=== PATIENT | male | born 1985 | race Caucasian/White ===

== ENCOUNTER 2021-12-07 21:57 | Inpatient (IN) ==
[2021-12-07] MEDS ORDERED: MULTI-VITAMIN INFUSION 10 ML, THIAMINE HCL 100 MG, FOLIC ACID 1 MG in SODIUM CHLORIDE 0... IV ONE (22:12)
[2021-12-07] MEDS ORDERED: LORazepam 2 MG/1 ML VIAL IV STA (22:12)
[2021-12-07] MEDS ORDERED: chlordiazePOXIDE HCl 25 MG CAP PO ONE (22:12)
--- NOTE | 2021-12-07 22:18 | Emergency Department Note ---
Impression & Plan Alcohol withdrawal, Alcohol abuse, Methamphetamine abuse, Elevated liver enzymes ED Provider Note NAME: MAYELA ENCISO AGE: 36 SEX: M : 1985 ARRIVES VIA: Ambulance INFORMANT: [Patient] ED PROVIDER(S): [Jonny Hernadez MD] CHIEF COMPLAINT: Detox request HISTORY OF PRESENT ILLNESS: The patient is a 36-year-old male with a history of alcohol abuse and methamphetamine abuse. He last used methamphetamine about 3 days ago. He last drank alcohol this morning. He drinks a case of beer daily. The patient was in our ED earlier today and had laboratory work drawn. When he was called to report to his room, he had left. Attempts were made to locate him but all attempts were unsuccessful. He returns now by ambulance asking for help, he states that he wants to rid himself of his addictions. Patient admits to some nausea and vomiting if he does not drink alcohol. He has in the past gone into seizures from alcohol withdrawal. He was at [facility] about a month ago for several days for detox. The patient complains of some left-sided abdominal and flank pain. This has been ongoing for some time. He complains of some difficulty urinating at times as well. There has been no fever, no cough or congestion. No diarrhea. REVIEW OF SYSTEMS: See HPI for pertinent positives and negatives. A total of ten systems were reviewed and were otherwise negative. PMHx/PSHx: See Below SOCIAL HISTORY: See Below. PHYSICAL EXAM: GENERAL: Patient is in no acute distress. Alcohol on his breath. HEENT: No acute trauma, normocephalic atraumatic, mucous membranes moist, no nasal congestion, no scleral icterus. NECK: No stridor, no adenopathy, no meningismus, trachea is midline. LUNGS: Clear to auscultation bilaterally, no wheeze, no rhonchi, breath sounds equal. HEART: Without murmurs gallops or rubs, regular rate and rhythm. ABDOMEN: Soft, somewhat tender in the left upper quadrant, bowel sounds positive, no hernias, no peritonitis. EXTREMITIES: No cyanosis or edema, full range of motion of all the joints without pain or difficulty, no signs for acute trauma. NEUROLOGIC: Oriented x 3, no acute motor or sensory deficits, no focal weakness. SKIN: No rash, no jaundice, no diaphoresis. Back: Mild left flank discomfort to percussion. Groin: No obvious hernias. DIFFERENTIAL DIAGNOSIS: Alcohol abuse, drug abuse, alcohol withdrawal, renal or liver failure, electrolyte imbalance, dehydration, hydronephrosis, gastritis, pancreatitis, UTI, renal colic, renal hematoma, pneumonia, among others. EMERGENCY DEPARTMENT COURSE/PROCEDURES: ECG: Indication was withdrawal. The ECG shows a normal sinus rhythm with a rate of 99. There is no ST elevation, no PVCs. The QTc is 454. Continuous Cardiac Monitoring: An order was placed for continuous cardiac monitoring. The monitor shows a rate of 107 with sinus tachycardia. Critical Care Note: I have personally spent 37 minutes of critical care time in the direct management of this patient. This includes bedside care, interpretation of diagnostic studies, and testing, discussion with consultants, patient, and family members, and other required patient management activities. This 37 minutes is in excess of all separately billable procedures. MEDICAL DECISION MAKING: I was able to review the laboratory work from his earlier visit and use this in conjunction with some testing from the second visit. There was no leukocytosis or concerning anemia. Platelet count was mildly high at 403. No renal failure or significant electrolyte abnormality. Liver enzymes were elevated. Patient appeared to be in a euthyroid state. Lipase was slightly high but not really high enough to diagnose pancreatitis. ECG showed a normal sinus rhythm, no ST elevation. Cardiac enzyme testing x1 was not consistent with acute cardiac injury. Urinalysis did not show infection. Aspirin and Tylenol levels were undetectable. Urine tox showed amphetamines. Alcohol level was initially elevated in the 300s with his first visit, it was 251 at the second visit. Covid testing returned negative. Chest x-ray did not show free air, pneumonia or mediastinal widening. Abdominal and pelvis CT showed no acute surgical pathology, no urinary obstruction or bowel obstruction. The patient presents with complaints of alcohol withdrawal. He had been here in this ED earlier but had left before he was placed in a room. He returned by ambulance for care. The patient received IV Ativan, oral Librium. He was given IV saline mixed with multivitamins, thiamine and folate. He does seem to be resting fairly comfortably. The patient is in need of a hospital stay. He is beginning to withdrawal from alcohol. He has in the past had alcohol withdrawal seizures. He requires a hospital stay, stabilization and eventually rehab placement. I did speak to the patient about his findings, I talked to case management. The on-call hospitalist was consulted. Past Med/Surg History Medical History Alcohol abuse Drug abuse Surgical History (Updated 12/08/21 @ 00:28 by Naima Montoya DO) No significant past surgical history Family History (Updated 12/08/21 @ 00:28 by Naima Montoya DO) Other Family history non-contributory Social History Smoking Status: Current every day smoker Preferred Language: Sami Feels Safe at Home: Yes Allergies Allergies Allergy/AdvReac Type Severity Reaction Status Date / Time No Known Allergies Allergy Verified 12/07/21 22:52 Home Meds Home Medications Medication Instructions Recorded Confirmed No Known Home Medications 12/07/21 12/07/21 Results & Data (ED) Vital Signs Vital Signs - 24 hr 12/07/21 22:09 Temperature 36.3 C L Temperature Source Oral Pulse Rate 90 Pulse Rhythm Regular Pulse Strength Normal Respiratory Rate 18 Respiratory Effort / Characteristics Non-Labored Respiratory Depth Normal Respiratory Pattern Regular Blood Pressure 164/97 H Blood Pressure Mean 119 Blood Pressure Position Lying Pulse Oximetry 97 Oxygen Delivery Method Room Air Sepsis Recent Fever Within 48 Hours No Sepsis New/Unexplained Change in Mental Status No Sepsis Action Taken by Nursing No Action Required Home Medications Current Medication List: was personally reviewed by me Laboratory Data Attestation: I reviewed the patient's lab results. Lab Results 12/07/21 12/07/21 12/07/21 Range/Units 22:40 22:40 22:40 Troponin I < 0.03 (0-0.04) ng/ml Lipase 102 H (11-82) U/L Ethyl Alcohol mg/dL 251.7 H (<10.0) mg/dl SARS-CoV-2, RNA, NAAT NEGATIVE (NEGATIVE) Administered Medications Discontinued Medications Chlordiazepoxide HCl (Chlordiazepoxide Hcl 25 Mg Cap) 50 mg PO NOW ONE Stop: 12/07/21 22:13 Last Admin: 12/07/21 23:23 Dose: 50 mg Documented by: [id number] Multivitamins 10 ml/ Thiamine HCl 100 mg/ Folic Acid 1 mg/Sodium Chloride 1,011.2 mls @ 1,011.2 mls/hr IV .Q1H ONE Stop: 12/07/21 23:11 Last Admin: 12/07/21 23:24 Dose: 1,011.2 mls/hr Documented by: [id number] Ioversol (Optiray 320 100ml) 100 ml IV ONCE ONE Stop: 12/07/21 23:14 Last Admin: 12/07/21 23:13 Dose: 93 ml Documented by: [id number] Lorazepam (Lorazepam 2 Mg/1 Ml Vial) 1 mg IV NOW STA Stop: 12/07/21 22:13 Last Admin: 12/07/21 23:24 Dose: 1 mg Documented by: [id number] Imaging Data Attestation: I personally reviewed and interpreted this imaging study as follows: My Impression: Chest x-ray: There is no free air, mediastinal widening or pneumothorax. I see no pneumonia. Radiologist's Impression: CT ABDOMEN & PELVIS With Contrast: No acute findings in the abdomen or pelvis. No radiodense gallstones or gallbladder distention. Unremarkable appendix. Bilateral extrarenal pelves. No hydronephrosis. Hepatic steatosis with focal fatty infiltration also visualized along the falciform ligament. Radiologist: Nhi Stewart M.D. Discharge Plan Visit Data Chief Complaint: Detox Request Stated Complaint: PAIN/ALCOHOL WITHDRAWL ED Provider: Jonny Hernadez Discharge Problem: Alcohol withdrawal, Alcohol abuse, Methamphetamine abuse, Elevated liver enzymes Patient Disposition: Admitted As Inpatient Condition: Fair Forms Stand Alone Forms: My [facility], Suicide Prevention Resources Prescriptions Prescriptions: No Action No Known Home Medications RF: 0 Referrals Referrals: PCP,NO [Primary Care Provider] -
[2021-12-07] MEDS ORDERED: OPTIRAY 320 100ml IV ONE (23:13)
[2021-12-07 23:15] LABS: Lipase 102 U/L (11-82)
[2021-12-07 23:16] LABS: Troponin I < 0.03 ng/ml (0-0.04)
[2021-12-08] MEDS ORDERED: chlordiazePOXIDE ALCOHOL WITHDRAWL 50MG PO STA (00:19)
[2021-12-08] MEDS ORDERED: GABAPENTIN 1200MG ALCOHOL WITHDRAWAL LOAD PO STA (00:19)
--- NOTE | 2021-12-08 00:38 | History & Physical Report ---
Date of Service December 08, 2021 Assessment & Plan (1) Alcohol abuse: Plan: 36yo male with history of EtOH abuse presenting with withdrawal symptoms, requesting detox. Patient has had history of withdrawal with seizures in the past. He drinks at least 30 beers/day. Last drink 12/07/21 AM prior to arrival to ER. Presently without withdrawal symptoms. He was administered a banana bag as well as Librium 50mg po and Ativan 1mg IV in the ER. -Admit to PCU -Seizure precautions -Continue Librium per protocol -Ativan as needed by AWSS scoring -Thiamine and B12 supplementation -Patient reports numbness and burning sensation on soles of feet bilaterally - ?EtOH neuropathy, B12 - check level (2) Drug abuse: Plan: Patient with history of methamphetamine use as well as IV heroine. -Consider rehab discussion after acute issues resolve -Check HCV and HIV with history of IVDU - patient is not sure if this has been checked in past. Plan: F/E/N - LR at 125mL/hr x 2 liters, check Mg and replete as needed, NPO for now Ppx - low risk for DVT Code - Full Dispo - Admit to PCU History of Present Illness Chief Complaint: EtOH withdrawal Primary Care Provider: NO PCP Riki Pereira is a 36yo male with history of EtOH abuse, heroine and methamphetamine use presenting with EtOH withdrawal and request for detoxification. Patient reports drinking EtOH regularly since childhood. He was incarcerated for 4 years and was released in 2019 after which he began drinking more heavily. He reports drinking at least 30 12oz beers per day with occasional liquor in addition. His last drink was this morning prior to arrival. He does use methamphetamine as well - last 3 days ago. He has used IV heroine in the past but reports has not done this for some time. Patient somnolent during my encounter after receiving Librium and Ativan. Overall he has no complaints. Denies fever, chills, chest pain or palpitations. He has tried to quit drinking in the past and was sober for 21 days. He identifies as an alcoholic; has tried AA/meetings in the past but didn't think they were helpful. He has been hospitalized for acute EtOH withdrawal in the past with seizures - details of when and where are unclear. Patient was seen in the ER earlier today - labs were drawn prior to him being placed in a room. He left after blood being drawn then returned. He then returned to the ER in an ambulance. Afebrile, mildly tachycardic at 104, NAD ER Course: Banana bag, Gabapentin, Librium Allergies Allergy/AdvReac Type Severity Reaction Status Date / Time No Known Allergies Allergy Verified 12/07/21 22:52 Home Medications Medication Instructions Recorded Confirmed Type No Known Home Medications 12/07/21 12/07/21 History Past Med/Surg History Medical History (Updated 12/08/21 @ 00:27 by Naima Montoya DO) Alcohol abuse Drug abuse Surgical History (Updated 12/08/21 @ 00:28 by Naima Montoya DO) No significant past surgical history Family History (Updated 12/08/21 @ 00:28 by Naima Montoya DO) Other Family history non-contributory Social History Smoking Status: Current every day smoker Preferred Language: Spanish Feels Safe at Home: Yes Review of Systems Review of Systems: All systems reviewed & are unremarkable except as noted in HPI & below Physical Exam Physical Exam: General: patient somnolent, arousable, answers questions and follows commands then falls back asleep. NAD, no tremor Skin: warm, dry, intact, no rashes or lesions HEENT: NC/AT, PERRL, EOMI, anicteric sclera, conjunctiva without injection, external ear normal to inspection and nontender, nares patent, dry mucus membranes, dentition intact, no oropharyngeal lesions, neck supple, trachea midline, no LAD, no thyromegaly, no JVD Heart: +S1/S2, regular, no m/r/g Lungs: equal air entry bilaterally, no rales/rhonchi/wheezes Abd: +BS, soft, NT/ND, no masses/organomegaly/ascites Ext: warm, 2+ pulses in UE/LE bilaterally, no clubbing/cyanosis or edema Neuro: nonfocal, patient AA&O x 4, speech intact, no facial droop, moving all extremities on command with equal strength 5/5 Results & Data Results & Data ([facility]) Vital Signs (Past 12 Hours) Vital Signs Temp Pulse Resp BP Pulse Ox 12/07/21 22:09 36.3 C L 90 18 164/97 H 97 Laboratory Results Laboratory Results Troponin I < 0.03 ng/ml (0-0.04) 12/07/21 22:40 Lipase 102 U/L (11-82) H 12/07/21 22:40 Ethyl Alcohol mg/dL 251.7 mg/dl (<10.0) H 12/07/21 22:40 SARS-CoV-2, RNA, NAAT NEGATIVE (NEGATIVE) 12/07/21 22:[address] Abdomen and Pelvis with contrast - No acute findings in the abdomen or pelvis. No radiodense gallstones or gallbladder distentino. Unremarkable appendix. Bilateral extrarenal pelves. No hydronephrosis. Hepatic steatosis with focal fatty infiltration also visualized along the falciform ligament. Code Status & VTE Plan VTE Prophylaxis Plan VTE Prophylaxis will be ordered: No PG Care Time/CCT Total # of Minutes Spent Total Time Spent with Patient: Total time spent is greater than 50% in coordination of care (as documented) at patient's floor/unit and/or counseling patient: Coding Level of Care Code 90724 Initial Inpt Care Lvl 2 Diagnoses Alcohol abuse F10.10 Drug abuse F19.10
[2021-12-08] MEDS ORDERED: ONDANSETRON INJ 2 MG/ML 2 ML VIAL IV PRN (01:15)
[2021-12-08] MEDS ORDERED: ATIVAN IV ALCOHOL WITHDRAWL IV PRN (01:15)
[2021-12-08] MEDS ORDERED: LORazepam 2 MG/1 ML VIAL IV PRN ×3 (01:15)
[2021-12-08] MEDS ORDERED: chlordiazePOXIDE HCl 25 MG CAP PO SCH (01:15)
[2021-12-08] MEDS: LACTATED RINGER'S 1,000 ML IV SCH ×2 (01:34→09:59)
[2021-12-08] MEDS: CHLORDIAZEPOXIDE 50MG STARTING DOSE PO SCH ×3 (05:46→18:20)
[2021-12-08 06:17] LABS: Hematocrit (blood only) 38.3 % (42-52); Hemoglobin 13.2 g/dL (14.0-18.0); Mean Corpuscular Hemoglobin 33.8 pg (25-34); Mean Corpuscular Hgb Conc 34.5 g/dL (32-36); Mean Platelet Volume 9.3 fL (7.4-10.4); Platelet Count 272 K/uL (130-400); RDW Coefficient of Variation 13.3 % (11.5-14.5); RDW Standard Deviation 47.5 fL (36.4-46.3); Red Blood Count 3.91 M/uL (4.7-6.1); White Blood Count 4.13 K/uL (4.8-10.8)
[2021-12-08 06:40] LABS: Alanine Aminotransferase 285 U/L (7-52); Albumin Globulin Ratio 1.3 (0.9-2); Albumin Level 3.5 gm/dl (3.4-5.0); Alkaline Phosphatase 135 U/L (34-104); Anion Gap 8 (3-11); Aspartate Aminotransferase 122 U/L (13-39); BUN Creatinine Ratio 21.2 (10-20); Bilirubin Direct 0.5 mg/dl (0-0.2); Bilirubin,Total 1.6 mg/dl (0.2-1.0); Blood Urea Nitrogen 7 mg/dl (6-23); Calcium 8.5 mg/dl (8.5-10.1); Carbon Dioxide 24 mmol/L (21-32); Chloride 105 mmol/L (98-107); Creatinine Clr Calc Pharmacy 342.9 ml/min; Est GFR (African American) > 150.0 ml/min; Est GFR (Non-African American) > 150.0 ml/min; Globulin 2.6 gm/dl (2.5-4.0); Glucose 93 mg/dl (70-99(Fasting)); Potassium 3.4 mmol/L (3.5-5.1); Sodium 137 mmol/L (136-145); Total Protein 6.1 gm/dl (6.0-8.3)
[2021-12-08 06:50] LABS: ALC (manual) 2.32 K/uL (1.2-3.4); ANC (manual) 1.31 K/uL (1.4-6.5); Basophils # (manual) 0.04 K/uL (0-0.2); Basophils % (manual) 0.9 %; Eosinophils # (manual) 0.25 K/uL (0-0.5); Eosinophils % (manual) 6.1 %; Lymphocytes # (manual) 1.48 K/uL (1.2-3.4); Lymphocytes % (manual) 35.9 %; Monocytes # (manual) 0.22 K/uL (0.11-0.59); Monocytes % (manual) 5.3 %; Neutrophils # (manual) 1.31 K/uL (1.4-6.5); Neutrophils % (manual) 31.6 %; Reactive Lymphocytes # (manual) 0.83 K/uL; Reactive Lymphocytes % (manual) 20.2 %
--- NOTE | 2021-12-08 07:18 | XRay Report ---
XR chest 1V portable CLINICAL HISTORY: left side pain. COMPARISON STUDY: No previous studies for comparison. TECHNIQUE: 1 view of the chest FINDINGS: Single frontal view of the chest demonstrates the cardiomediastinal silhouette to be within normal li mits. The lungs are clear of alveolar opacities. There is no evidence for pleural effusion. There is no evidence for vascular congestion. There is no acute osseous pathology. IMPRESSION: 1. No acute cardiopulmonary disease. ACT 112: Negative or not required by law. Electronically signed by: Keith Seaman M.D. 12/08/2021 7:16 AM
--- NOTE | 2021-12-08 07:31 | CT Scan Report ---
CT OF THE ABDOMEN AND PELVIS WITH CONTRAST CLINICAL HISTORY: Left-sided abdominal pain and vomiting. COMPARISON STUDY: None. TECHNIQUE: Following IV administration of 93 mL of Optiray, axial images of the abdomen and pelvis we re obtained from the lung bases to the proximal femurs. Images were reviewed in the axial, sagittal, and coronal planes. IV contrast was administered without complication. Automated exposure control wa s utilized for the study. A dose lowering technique was utilized adhering to the principles of ALARA . CT DOSE: 321.93 mGy.cm FINDINGS: No pneumatosis, free air or portal venous gas is present. There is suspected hepatic steato sis. In addition, there is focal fat along the falciform ligament. No hepatic lesions are present. Th ere is no biliary or pancreatic ductal dilatation. Spleen, adrenal glands, kidneys and pancreas are u nremarkable. There is no hydronephrosis. There is no evidence for a bowel obstruction. The appendix i s normal. Underdistention of the colon is noted. Equivocal bladder wall thickening is present. Major vasculature is patent. There is no lymphadenopathy or ascites. No acute fracture or suspicious lesion is identified within the visualized skeletal structures. IMPRESSION: 1. No acute process within the abdomen or pelvis. 2. Probable hepatic steatosis. 3. No bowel obstruction. No bowel wall thickening. Normal appendix. ACT 112: Negative or not required by law. Electronically signed by: Jan Toribio M.D. 12/08/2021 7:30 AM
[2021-12-08] MEDS ORDERED: THIAMINE HCL 100 MG TAB PO SCH (09:00)
[2021-12-08] MEDS: FOLIC ACID 1 MG TAB PO SCH (09:56)
[2021-12-08] MEDS: POTASSIUM CHLORIDE CRTAB 20 MEQ TABCR PO SCH ×2 (09:57→20:47)
[2021-12-08] MEDS: THIAMINE HCL 500 MG in SODIUM CHLORIDE 0.9% 50 ML IV SCH ×2 (10:02→16:36)
[2021-12-08] MEDS ORDERED: PANTOprazole 40 MG TAB PO STA (11:28)
--- NOTE | 2021-12-08 11:29 | Hospitalist Progress Note ---
Date of Service December 08, 2021 Assessment & Plan (1) Alcohol abuse: Plan: With active withdrawal symptoms. Has had significant etoh withdrawal with seizures in the past. He drinks ~30 beers/day. Last drink 12/07/21 AM prior to arrival to ER. Cont librium scheduled. Cont ativan prn per protocol. Increase thiamine to 500mg IV TID given his neuropathy symptoms of the legs. Do this for at least 48 hours. Cont MVI, folate. Cont telemetry. Social work assistance requested. (2) Drug abuse: Plan: Patient with history of methamphetamine use as well as IV heroine. Would patient be interested in drug/etoh rehab? Uncertain at this time. HIV/Hepatitis tests pending. (3) Hypokalemia: Plan: Replace. repeat K with Mg level am. (4) Gastritis: Plan: Epigastric pain likely alcoholic gastritis. Can't rule out PUD. Start PPI + carafate. Lipase minimally high - repeat AM. CT a/p shows normal pancreas however. (5) Homelessness: Plan: I informed social work about this. Will need to secure a safe environment for him at discharge. 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 B12 level wnl. can't exclude B1 def - he has been started on thiamine supplementation thus checking level at this time would likely be spurious. simply give high dose thiamine IV. start gabapentin 100mg TID. Plan: diet - start clears Admission and Anticipated Discharge Date Admission Date: December 08, 2021 Subjective patient asks if he can have something to eat/drink he reports hot/cold chills with sweats muscle aches anxiety occasional dyspnea/wheeze additionally also c/o upper abd pain recently outside of the hospital the abd pain would be worse with eating/drinking denies vomiting today c/o burning in both feet with some extension to the distal legs present off/on for some time tele - NSR thus far social history - patient sees a counselor in the [facility] area he is homeless - has been staying in various towns/locations for some time last alcoholic drink was yesterday used meth several days ago as well Physical Exam Physical Exam: gen - diaphoretic, but awake/alert/oriented mouth - MM dry heart - RRR, s1 s2 lungs - CTA b/l abd - soft, tender epigastric region, BS+, no HSM ext - no edema, pulses 2+ b/l neuro - modest tremors of arms noted Results & Data Results & Data ([facility]) Vital Signs (Past 12 Hours) Vital Signs Temp Pulse Pulse Resp BP Pulse Ox Pulse Ox 12/08/21 07:14 36.9 C 75 20 123/78 98 12/08/21 03:48 37.0 C 77 20 117/77 95 12/08/21 01:37 37 C 111 H 16 115/63 93 12/08/21 01:15 37 C 110 H 20 115/63 98 97 12/08/21 00:25 104 H 15 137/83 93 12/08/21 00:00 106 H Laboratory Results Laboratory Results - last 24 hr 12/07/21 12/07/21 12/07/21 22:40 22:40 22:40 WBC RBC Hgb Hct MCV MCH MCHC RDW Std Deviation RDW Coeff of Megan Plt Count MPV Neutrophils % (Manual) Lymphocytes % (Manual) Reactive Lymphs % (Man) Monocytes % (Manual) Eosinophils % (Manual) Basophils % (Manual) Neutrophils # (Manual) Total Absolute Neuts Lymphocytes # (Manual) Reactive Lymphs # Total Abs Lymphocytes Monocytes # (Manual) Eosinophils # (Manual) Basophils # (Manual) Sodium Potassium Chloride Carbon Dioxide Anion Gap BUN Creatinine Est Cr Clr Drug Dosing Est GFR ( Amer) Est GFR (Non-Af Amer) BUN/Creatinine Ratio Glucose Calcium Magnesium Total Bilirubin Direct Bilirubin AST ALT Alkaline Phosphatase Troponin I < 0.03 Total Protein Albumin Globulin Albumin/Globulin Ratio Lipase 102 H Vitamin B12 Ethyl Alcohol mg/dL 251.7 H Hepatitis C Ab (EIA) Hep C Ab Signal/Cutoff HIV (1&2) Ag & Ab Conf SARS-CoV-2, RNA, NAAT NEGATIVE 12/07/21 12/08/21 12/08/21 22:40 05:48 05:48 WBC RBC Hgb Hct MCV MCH MCHC RDW Std Deviation RDW Coeff of Megan Plt Count MPV Neutrophils % (Manual) Lymphocytes % (Manual) Reactive Lymphs % (Man) Monocytes % (Manual) Eosinophils % (Manual) Basophils % (Manual) Neutrophils # (Manual) Total Absolute Neuts Lymphocytes # (Manual) Reactive Lymphs # Total Abs Lymphocytes Monocytes # (Manual) Eosinophils # (Manual) Basophils # (Manual) Sodium Potassium Chloride Carbon Dioxide Anion Gap BUN Creatinine Est Cr Clr Drug Dosing Est GFR ( Amer) Est GFR (Non-Af Amer) BUN/Creatinine Ratio Glucose Calcium Magnesium 1.9 Total Bilirubin Direct Bilirubin AST ALT Alkaline Phosphatase Troponin I Total Protein Albumin Globulin Albumin/Globulin Ratio Lipase Vitamin B12 Ethyl Alcohol mg/dL Hepatitis C Ab (EIA) Pending Hep C Ab Signal/Cutoff Pending HIV (1&2) Ag & Ab Conf Pending SARS-CoV-2, RNA, NAAT 12/08/21 12/08/21 12/08/21 05:48 05:48 05:48 WBC 4.13 L RBC 3.91 L Hgb 13.2 L Hct 38.3 L MCV 98.0 MCH 33.8 MCHC 34.5 RDW Std Deviation 47.5 H RDW Coeff of Megan 13.3 Plt Count 272 MPV 9.3 Neutrophils % (Manual) 31.6 Lymphocytes % (Manual) 35.9 Reactive Lymphs % (Man) 20.2 Monocytes % (Manual) 5.3 Eosinophils % (Manual) 6.1 Basophils % (Manual) 0.9 Neutrophils # (Manual) 1.31 L Total Absolute Neuts 1.31 L Lymphocytes # (Manual) 1.48 Reactive Lymphs # 0.83 Total Abs Lymphocytes 2.32 Monocytes # (Manual) 0.22 Eosinophils # (Manual) 0.25 Basophils # (Manual) 0.04 Sodium 137 Potassium 3.4 L Chloride 105 Carbon Dioxide 24 Anion Gap 8 BUN 7 Creatinine 0.33 L Est Cr Clr Drug Dosing 342.9 Est GFR ( Amer) > 150.0 Est GFR (Non-Af Amer) > 150.0 BUN/Creatinine Ratio 21.2 H Glucose 93 Calcium 8.5 Magnesium Total Bilirubin 1.6 H Direct Bilirubin 0.5 H AST 122 H ALT 285 H Alkaline Phosphatase 135 H Troponin I Total Protein 6.1 D Albumin 3.5 Globulin 2.6 Albumin/Globulin Ratio 1.3 Lipase Vitamin B12 436 Ethyl Alcohol mg/dL Hepatitis C Ab (EIA) Hep C Ab Signal/Cutoff HIV (1&2) Ag & Ab Conf SARS-CoV-2, RNA, NAAT PG Care Time/CCT Total # of Minutes Spent Total Time Spent with Patient: Total time spent is greater than 50% in coordination of care (as documented) at patient's floor/unit and/or counseling patient: Coding Level of Care Code None Diagnoses Alcohol abuse F10.10 Drug abuse F19.10 Hypokalemia E87.6 Gastritis K29.70 Homelessness Z59.00 DVT prophylaxis Z29.9 Neuropathy of both feet G57.93
[2021-12-08] MEDS: SUCRALFATE 1 GM/10 ML UDC PO SCH ×3 (12:55→20:47)
[2021-12-08] MEDS: GABAPENTIN 100 MG CAP PO SCH ×2 (12:58→20:47)
--- NOTE | 2021-12-08 21:44 | Electrocardiogram Report ---
Test Reason : Blood Pressure : / mmHG Vent. Rate : 099 BPM Atrial Rate : 099 BPM P-R Int : 162 ms QRS Dur : 098 ms QT Int : 354 ms P-R-T Axes : 053 031 053 degrees QTc Int : 454 ms Normal sinus rhythm Normal ECG No previous ECGs available Confirmed by Catarino Mcgregor ([id number]) on 12/08/2021 9:43:39 PM Referred By: REFERRED SELF Confirmed By:Catarino Mcgregor
[2021-12-09] MEDS: CHLORDIAZEPOXIDE 50MG 2ND DOSE PO SCH ×3 (00:10→17:28)
[2021-12-09] MEDS: THIAMINE HCL 500 MG in SODIUM CHLORIDE 0.9% 50 ML IV SCH ×3 (00:10→17:28)
[2021-12-09 06:42] LABS: Hematocrit (blood only) 43.9 % (42-52); Hemoglobin 14.9 g/dL (14.0-18.0); Mean Corpuscular Hgb Conc 33.9 g/dL (32-36); Mean Corpuscular Volume 97.3 fL (80-100); Mean Platelet Volume 9.7 fL (7.4-10.4); Platelet Count 284 K/uL (130-400); RDW Coefficient of Variation 12.9 % (11.5-14.5); RDW Standard Deviation 45.9 fL (36.4-46.3); Red Blood Count 4.51 M/uL (4.7-6.1); White Blood Count 4.29 K/uL (4.8-10.8)
[2021-12-09 07:00] LABS: Alanine Aminotransferase 238 U/L (7-52); Albumin Globulin Ratio 1.3 (0.9-2); Albumin Level 3.8 gm/dl (3.4-5.0); Alkaline Phosphatase 128 U/L (34-104); Anion Gap 7 (3-11); Aspartate Aminotransferase 100 U/L (13-39); BUN Creatinine Ratio 10.4 (10-20); Bilirubin,Total 2.4 mg/dl (0.2-1.0); Blood Urea Nitrogen 5 mg/dl (6-23); Calcium 9.2 mg/dl (8.5-10.1); Carbon Dioxide 28 mmol/L (21-32); Chloride 101 mmol/L (98-107); Creatinine Clr Calc Pharmacy 235.8 ml/min; Est GFR (African American) > 150.0 ml/min; Est GFR (Non-African American) 142.8 ml/min; Globulin 2.9 gm/dl (2.5-4.0); Glucose 104 mg/dl (70-99(Fasting)); Lipase 47 U/L (11-82); Magnesium 1.7 mg/dl (1.7-2.4); Potassium 3.6 mmol/L (3.5-5.1); Sodium 136 mmol/L (136-145); Total Protein 6.7 gm/dl (6.0-8.3)
[2021-12-09] MEDS: POTASSIUM CHLORIDE CRTAB 20 MEQ TABCR PO SCH ×2 (08:00→20:27)
[2021-12-09] MEDS: GABAPENTIN 100 MG CAP PO SCH ×3 (08:00→20:26)
[2021-12-09] MEDS: PANTOprazole 40 MG TAB PO SCH (08:01)
[2021-12-09] MEDS: FOLIC ACID 1 MG TAB PO SCH (08:01)
[2021-12-09] MEDS: SUCRALFATE 1 GM/10 ML UDC PO SCH ×4 (08:02→20:26)
[2021-12-09] MEDS ORDERED: MAGNESIUM SULFATE / D5W 1 GM/100 ML BAG IV ONE (08:15)
--- NOTE | 2021-12-09 12:25 | Hospitalist Progress Note ---
Date of Service December 09, 2021 Assessment & Plan (1) Alcohol abuse: Plan: With active withdrawal symptoms. Has had significant etoh withdrawal with seizures in the past. He drinks ~30 beers/day. Last drink 12/07/21 AM prior to arrival to ER. Cont librium taper. Cont ativan prn per protocol. Cont thiamine 500mg IV TID 1 more day given his neuropathy symptoms of the legs. Then reduce to 200mg BID. Cont MVI, folate. Cont telemetry. Add back IVF - NS with KCL. (patient with dizziness/lightheadedness upon standing) Social work assistance requested for his complex social issues (homelessness, etc). (2) Drug abuse: Plan: Patient with history of methamphetamine use as well as IV heroine. HIV testing negative. HepC testing pending. (3) Hypokalemia: Plan: replaced resolved (4) Gastritis: Plan: Epigastric pain likely alcoholic gastritis. Can't rule out PUD. Started PPI + carafate yesterday w/ improved sx's. Lipase minimally high yesterday - repeat today wnl. CT a/p showed normal pancreas. (5) Homelessness: Plan: I informed social work about this. Will need to secure a safe environment for him at discharge. (6) DVT prophylaxis: Plan: start lovenox (7) Neuropathy of both feet: Plan: likely due to damage from etoh. B12 level wnl. can't exclude B1 def - he has been started on thiamine supplementation thus checking level at this time would likely be spurious. simply give high dose thiamine IV. started gabapentin 100mg TID on 12/08. titrate as tolerated in the next few days. (8) Abnormal CBC: Plan: recent differential showed atypical lymphocytes with lymphocytosis viral etiology?? repeat cbc w/ diff in am Plan: due to recent cellulitis (was that episode due to IV injection use) and ongoing hot/cold chills will obtain blood cx's x 2 sets along with sed rate/crp Admission and Anticipated Discharge Date Admission Date: December 08, 2021 Subjective tele with NSR or sinus tach patient with ongoing hot/cold chills, fatigue, myalgias - simply feeling poorly tolerated clears; now tolerating regular diet no vomiting his abd pain is improved s/p PPI + carafate he reports that 2-3 weeks ago he was dx with cellulitis of the LUE - seen at [facility] - given IV abx, then sent home with PO abx (clindamycin x 7 days per pharmacy records); the cellulitis is resolved he also states he had right foot pain at the same time as the LUE cellulitis - this, too, is resolved Review of Systems Review of Systems: gen - no fevers but having chills; appetite improved cv - no chest pain or orthopnea pulm - no dyspnea GI - no abd pain neuro - some dizziness w/ standing Physical Exam Physical Exam: gen - looks better today; awake, alert mouth - MM still dry heart - RRR, s1 s2, 1/6 RO[place] MARIE LSB lungs - CTA b/l abd - soft, NT, ND, BS+, no HSM ext - no edema, pulses 2+ b/l neuro - modest tremors of arms psych - a/o x 3 skin - no rash of LUE; no rash or erythema of right foot Results & Data Results & Data ([facility]) Vital Signs (Past 12 Hours) Vital Signs Temp Pulse Pulse Resp BP Pulse Ox Pulse Ox 12/09/21 12:00 96 H 15 146/95 H 95 12/09/21 08:00 36.5 C 110 H 95 H 16 139/94 94 12/09/21 04:24 36.7 C 84 20 136/88 95 12/09/21 01:15 95 12/09/21 00:35 36.6 C 78 16 131/87 95 Laboratory Results Laboratory Results - last 24 hr 12/08/21 12/09/21 12/09/21 05:48 06:06 06:06 WBC 4.29 L RBC 4.51 L Hgb 14.9 Hct 43.9 MCV 97.3 MCH 33.0 MCHC 33.9 RDW Std Deviation 45.9 RDW Coeff of Megan 12.9 Plt Count 284 MPV 9.7 Sodium 136 Potassium 3.6 Chloride 101 Carbon Dioxide 28 Anion Gap 7 BUN 5 L Creatinine 0.48 L Est Cr Clr Drug Dosing 235.8 Est GFR ( Amer) > 150.0 Est GFR (Non-Af Amer) 142.8 BUN/Creatinine Ratio 10.4 Glucose 104 H Calcium 9.2 Magnesium 1.7 Total Bilirubin 2.4 H AST 100 H ALT 238 H Alkaline Phosphatase 128 H Total Protein 6.7 Albumin 3.8 Globulin 2.9 Albumin/Globulin Ratio 1.3 Lipase 47 HIV (1&2) Ag & Ab Conf NON-REACTIVE PG Care Time/CCT Total # of Minutes Spent Total Time Spent with Patient: Total time spent is greater than 50% in coordination of care (as documented) at patient's floor/unit and/or counseling patient: Coding Level of Care Code 23452 Subseq Hosp Care Lvl 2 Diagnoses Alcohol abuse F10.10 Drug abuse F19.10 Hypokalemia E87.6 Gastritis K29.70 Homelessness Z59.00 DVT prophylaxis Z29.9 Neuropathy of both feet G57.93 Abnormal CBC R79.89
[2021-12-09] MEDS: NSS + 20MEQ KCL 20 MEQ/1,000 ML BAG IV SCH (13:54)
[2021-12-09] MEDS ORDERED: ENOXAPARIN INJ 40 MG/0.4 ML SYR SQ ONE (20:04)
[2021-12-10] MEDS: CHLORDIAZEPOXIDE 25MG 3RD DOSE PO SCH ×3 (00:22→16:23)
[2021-12-10] MEDS: THIAMINE HCL 500 MG in SODIUM CHLORIDE 0.9% 50 ML IV SCH (00:23)
[2021-12-10 05:56] LABS: Basophils # (auto) 0.03 K/uL (0-0.2); Basophils % (auto) 0.6 %; Eosinophils # (auto) 0.38 K/uL (0-0.5); Eosinophils % (auto) 7.1 %; Hematocrit (blood only) 45.2 % (42-52); Hemoglobin 15.4 g/dL (14.0-18.0); Immature Granulocytes # (auto) 0.01 K/uL (0.00-0.02); Immature Granulocytes % (auto) 0.2 %; Lymphocytes # (auto) 2.17 K/uL (1.2-3.4); Lymphocytes % (auto) 40.8 %; Mean Corpuscular Hemoglobin 33.3 pg (25-34); Mean Corpuscular Hgb Conc 34.1 g/dL (32-36); Mean Corpuscular Volume 97.8 fL (80-100); Monocytes # (auto) 0.44 K/uL (0.11-0.59); Monocytes % (auto) 8.3 %; Neutrophils # (auto) 2.29 K/uL (1.4-6.5); Platelet Count 284 K/uL (130-400); RDW Coefficient of Variation 12.7 % (11.5-14.5); RDW Standard Deviation 45.8 fL (36.4-46.3); Red Blood Count 4.62 M/uL (4.7-6.1); White Blood Count 5.32 K/uL (4.8-10.8)
[2021-12-10 06:17] LABS: Alanine Aminotransferase 191 U/L (7-52); Albumin Globulin Ratio 1.3 (0.9-2); Albumin Level 3.8 gm/dl (3.4-5.0); Alkaline Phosphatase 142 U/L (34-104); Anion Gap 6 (3-11); Aspartate Aminotransferase 76 U/L (13-39); BUN Creatinine Ratio 14.3 (10-20); Bilirubin,Total 1.5 mg/dl (0.2-1.0); Blood Urea Nitrogen 8 mg/dl (6-23); Carbon Dioxide 27 mmol/L (21-32); Chloride 104 mmol/L (98-107); Creatinine Clr Calc Pharmacy 202.1 ml/min; Est GFR (African American) > 150.0 ml/min; Glucose 118 mg/dl (70-99(Fasting)); Sodium 137 mmol/L (136-145); Total Protein 6.8 gm/dl (6.0-8.3)
[2021-12-10] MEDS: NSS + 20MEQ KCL 20 MEQ/1,000 ML BAG IV SCH (08:19)
[2021-12-10] MEDS: POTASSIUM CHLORIDE CRTAB 20 MEQ TABCR PO SCH (08:27)
[2021-12-10] MEDS: PANTOprazole 40 MG TAB PO SCH (08:28)
[2021-12-10] MEDS: FOLIC ACID 1 MG TAB PO SCH (08:28)
[2021-12-10] MEDS: SUCRALFATE 1 GM/10 ML UDC PO SCH ×3 (08:28→16:22)
[2021-12-10] MEDS: GABAPENTIN 100 MG CAP PO SCH (08:29)
[2021-12-10] MEDS ORDERED: CEROVITE ADV FORMULA TAB PO SCH (09:00)
[2021-12-10] MEDS ORDERED: ENOXAPARIN INJ 40 MG/0.4 ML SYR SQ SCH (09:00)
[2021-12-10] MEDS ORDERED: THIAMINE HCL 100 MG TAB PO SCH (10:45)
[2021-12-10] MEDS ORDERED: GABAPENTIN 100 MG CAP PO SCH (14:00)
--- NOTE | 2021-12-10 18:21 | Discharge Summary ---
Date of Service date of admission - December 08, 2021 date of discharge - December 10, 2021 - left against medical advice Admission HPI Per Admitting Provider Riki Pereira is a 36yo male with history of EtOH abuse, heroine and methamphetamine use presenting with EtOH withdrawal and request for detoxification. Patient reports drinking EtOH regularly since childhood. He was incarcerated for 4 years and was released in 2019 after which he began drinking more heavily. He reports drinking at least 30 12oz beers per day with occasional liquor in addition. His last drink was this morning prior to arrival. He does use methamphetamine as well - last 3 days ago. He has used IV heroine in the past but reports has not done this for some time. Patient somnolent during my encounter after receiving Librium and Ativan. Overall he has no complaints. Denies fever, chills, chest pain or palpitations. He has tried to quit drinking in the past and was sober for 21 days. He identifies as an alcoholic; has tried AA/meetings in the past but didn't think they were helpful. He has been hospitalized for acute EtOH withdrawal in the past with seizures - details of when and where are unclear. Patient was seen in the ER earlier today - labs were drawn prior to him being placed in a room. He left after blood being drawn then returned. He then returned to the ER in an ambulance. Afebrile, mildly tachycardic at 104, NAD ER Course: Banana bag, Gabapentin, Librium Principal Diagnosis Alcohol Withdrawal Alcoholism Alcoholic Gastritis Discharge Exam gen - awake, alert, oriented x 3 mouth - MMM heart - RRR, s1 s2, 1/6 ROSE MARIE LSB lungs - CTA b/l abd - soft, NT, ND, BS+, no HSM ext - no edema, pulses 2+ b/l neuro - minimal tremors of arms psych - a/o x 3 skin - no rash of LUE; no rash or erythema of right foot Discharge Data Allergies Allergy/AdvReac Type Severity Reaction Status Date / Time No Known Allergies Allergy Verified 12/07/21 22:52 Ordered Studies Abdomen/Pelvis CT 12/07/21 22:12 CT OF THE ABDOMEN AND PELVIS WITH CONTRAST CLINICAL HISTORY: Left-sided abdominal pain and vomiting. COMPARISON STUDY: None. TECHNIQUE: Following IV administration of 93 mL of Optiray, axial images of the abdomen and pelvis were obtained from the lung bases to the proximal femurs. Images were reviewed in the axial, sagittal, and coronal planes. IV contrast was administered without complication. Automated exposure control was utilized for the study. A dose lowering technique was utilized adhering to the principles of ALARA. CT DOSE: 321.93 mGy.cm FINDINGS: No pneumatosis, free air or portal venous gas is present. There is suspected hepatic steatosis. In addition, there is focal fat along the falciform ligament. No hepatic lesions are present. There is no biliary or pancreatic ductal dilatation. Spleen, adrenal glands, kidneys and pancreas are unremarkable. There is no hydronephrosis. There is no evidence for a bowel obstruction. The appendix is normal. Underdistention of the colon is noted. Equivocal bladder wall thickening is present. Major vasculature is patent. There is no lymphadenopathy or ascites. No acute fracture or suspicious lesion is identified within the visualized skeletal structures. IMPRESSION: 1. No acute process within the abdomen or pelvis. 2. Probable hepatic steatosis. 3. No bowel obstruction. No bowel wall thickening. Normal appendix. ACT 112: Negative or not required by law. Electronically signed by: Jan Toribio M.D. 12/08/2021 7:30 AM Chest X-Ray 12/07/21 22:12 XR chest 1V portable CLINICAL HISTORY: left side pain. COMPARISON STUDY: No previous studies for comparison. TECHNIQUE: 1 view of the chest FINDINGS: Single frontal view of the chest demonstrates the cardiomediastinal silhouette to be within normal limits. The lungs are clear of alveolar opacities. There is no evidence for pleural effusion. There is no evidence for vascular congestion. There is no acute osseous pathology. IMPRESSION: 1. No acute cardiopulmonary disease. ACT 112: Negative or not required by law. Electronically signed by: Keith Seaman M.D. 12/08/2021 7:16 AM Hospital Course (1) Alcohol abuse: With active withdrawal symptoms. Has had significant etoh withdrawal with seizures in the past. He drinks ~30 beers/day. Last drink 12/07/21 AM prior to arrival to ER. Treated with librium taper + ativan prn per protocol. s/p thiamine 500mg IV TID x 2 days due to neuropathy symptoms of his legs as well as high risk of Wernicke's. Reduced thiamine to 200mg BID thereafter. On the day of the patient's leaving against medical advice he was awake, alert, and oriented x 3. Withdrawal symptoms were minimal at time of leaving the hospital AM. Despite counseling him on the risks of leaving the hospital too soon (at risk of seizures, etc) he still insisted on leaving [facility]. Although he reported early in his stay that he had been homeless, on day of leaving AM he stated he was going to live with his ex- and 2 children. The social work staff provided him with a list of resources in the community. (2) Drug abuse: Patient with history of methamphetamine use as well as IV heroine. HIV testing negative. HepC testing was pending at time of leaving the hospital [facility] but later returned positive. He will need to have alcohol abstinence in order to qualify for treatment of his HepC infection. Follow-up with GI post-discharge. (3) Hypokalemia: replaced resolved (4) Gastritis: The patient had epigastric pain which I suspect was alcoholic gastritis. Can't rule out PUD. Started PPI + carafate w/ improved sx's. Lipase minimally high at time of admission - repeat was negative. CT a/p showed normal pancreas. He was given a 30-day supply of PPI + 7-day supply of carafate at discharge. (5) Homelessness: Social work provided a list of resources available in the community for him. At time of leaving [facility], however, he reported he had a place to stay with his ex- and 2 children. (6) Neuropathy of both feet: Likely due to damage from chronic etoh abuse. B12 level wnl. Can't exclude B1 deficiency - thus, he was treated with high-dose thiamine supplementation while here. He was initiated on gabapentin 100mg TID for symptomatic control. He was provided with a 7-day supply of 200mg TID of gabapentin at discharge. (7) Abnormal CBC: The patient's recent differential showed atypical lymphocytes with lymphocytosis. viral etiology?? repeat cbc w/ diff later in his stay showed normalization. 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 He will need to establish care with GI or ID to address this issue. HepC RNA was indeed positive. The patient was counseled to follow-up with a family doctor within 5 days of leaving the hospital [facility]. He should also follow-up with a reexaminer in the next 2 weeks for suspected gastritis. Total Time Total Time Spent Total Time Spent (In Minutes): 40 Discharge Plan Discharge Items Patient Disposition: Against Medical Advice Reason For Visit: ALCOHOL WITHDRAWAL Activity: Resume your previous activity Non-emergency contact: Primary Care Provider Follow-up/Referrals: PCP,NO [Primary Care Provider] - (It will be your responsibility to arrange follow-up with a family physician within the next 5 days. ) Addtl [employer] Display Specialist Provider Instructions: Mr Pereira, Ritchie were admitted to [facility] for alcohol withdrawal. You were treated with IV fluids and medications to treat your withdrawal symptoms. We suspected that you had gastritis (irritation of the stomach from your alcohol use). This was treated with acid reducers. On the evening of 12/10/21 you requested discharge from the hospital. I recommended against this since you are still going through withdrawal and receiving medications for the withdrawal. You are still wanting to be released thus you are leaving against medical advice. It will be your responsibility to arrange all follow-up for your medical care including establishing care with a family physician in your home town. You will need to be seen within 5 days of discharge. You will not receive medications for any alcohol withdrawal. If you are experiencing worsening alcohol withdrawal upon return home you will need to seek medical attention right away at the nearest hospital emergency room. Alcohol withdrawal is a serious condition which can put you at risk of seizures, severe confusion/hallucinations, respiratory arrest, or even . Please remember the resource list that was given to you by our social work staff to help with your alcoholism. Please seek out counseling and assistance to help you maintain sobriety. Finally, your liver function tests are still elevated due to recent heavy drinking. Further drinking, tylenol use, and use of other substances that affect the liver could lead to further damage to the liver and even liver failure. Alcohol use and tylenol use are not recommended at this time. Medications called to [facility] include - 1. gabapentin 200mg THREE times a day. This is for neuropathy of your feet. I am only prescribing a 7-day supply. Future refills will need to be obtained from your family doctor. 2. thiamine 200mg twice daily x 30 days. 3. folic acid 1mg daily x 30 days. 4. pantoprazole 40mg once daily for suspected gastritis (irritation in your stomach). 5. sucralfate 1gm twice daily for 7 days; this is also for your stomach. Follow-up with a family doctor within 5 days. Follow-up with a reexaminer specialist in the next 2 weeks for your stomach. Pending Studies at Discharge: Yes (blood cultures ) Stand-Alone Forms: My [facility] [employer] Poker Products, Smoking Cessation Medications and DC Order Prescriptions: New thiamine HCl (vitamin B1) 100 mg Tablet 200 mg PO BID 30 Days Qty: 120 RF: 0 pantoprazole 40 mg Tablet,Delayed Release (Dr/Ec) 40 mg PO QAM Qty: 30 RF: 0 folic acid 1 mg Tablet 1 mg PO QAM Qty: 30 RF: 0 gabapentin 100 mg Capsule 200 mg PO TID 7 Days Qty: 42 RF: 0 sucralfate [Carafate] 1 gram tablet 1 g PO BID 7 Days Qty: 14 RF: 0 Discharge Orders: Left Against Medical Advice (Routine); Ordered 12/10/21 Ordered By: Tony Fernando Admission Data Admit Date/Time: 12/08/21 00:19 Attending Provider: Tony Fernando Admit Provider: Naima Montoya Primary Care Provider: PCP,NO Other Providers: Naima Montoya Coding Level of Care Code D/C DAY MANAGEMENT >30 MINS Diagnoses Alcohol abuse F10.10 Drug abuse F19.10 Hypokalemia E87.6 Gastritis K29.70 Homelessness Z59.00 Neuropathy of both feet G57.93 Abnormal CBC R79.89 Hepatitis C infection B19.20
[2021-12-11] MEDS ORDERED: CHLORDIAZEPOXIDE 10MG 4TH DOSE PO SCH
[2021-12-12 11:14] LABS: Hepatitis C Vira RNA (Log) PCR 4.75 Log IU/mL (NOT DETECTED); Hepatitis C Viral RNA by PCR 56000 IU/mL (NOT DETECTED)
== END 2021-12-10 18:35 | disposition left against medical advice (07) | DRG 894 ==
LOC: ED 21:57 → SUATTDRO 12-08 00:19 → 2E 12-08 00:19
DX: K29.20 Alcoholic gastritis without bleeding; G62.1 Alcoholic polyneuropathy; F10.230 Alcohol dependence with withdrawal, uncomplicated; B19.20 Unspecified viral hepatitis C without hepatic coma; Z59.02 Unsheltered homelessness; F15.13 Other stimulant abuse with withdrawal; E87.6 Hypokalemia; F11.10 Opioid abuse, uncomplicated